=== PATIENT | male | born 1970 | race Caucasian/White ===

== ENCOUNTER 2021-03-17 15:10 | Emergency (ER) | payer BC ==
[~2021-03-17] VITALS: Ht 172.7 cm; Wt 79.5 kg
[2021-03-17] MEDS ORDERED: SYMB16INH INH (15:18)
[2021-03-17] MEDS ORDERED: FLON1SPR NARES (15:18)
[2021-03-17] MEDS ORDERED: NEXI40CA PO (15:18)
--- NOTE | 2021-03-17 16:05 | REP ---
INDICATION: CHEST PAIN. COMPARISON: None. TECHNIQUE: Portable FINDINGS: The technique utilized in obtaining the radiograph has magnified the cardiac silhouette and accentuated the interstitial markings. The superior mediastinal structures are midline. The cardiac silhouette is unremarkable in size, shape, and position. The diaphragmatic surfaces of the lungs are regular, and the costophrenic angles are clear. The pulmonary hancock are clear. The imaged osseous structures are intact. IMPRESSION: There is no acute cardiopulmonary disease. <Electronically signed by Douglas Rosenbaum > 03/17/21 [id number]
[2021-03-17 16:15] LABS: BASO % 0.5 % (0.0-1.0); EOS # 0.2 10^3/uL (0.0-0.5); EOS % 2.3 % (0.0-3.0); HEMATOCRIT 43.3 % (42.0-52.0); HEMOGLOBIN 15.7 g/dl (13.5-17.5); LYMPH # 1.5 10^3/uL (1.5-5.0); LYMPH % 22.4 % (24.0-44.0); MEAN CORPUSCULAR HEMOGLOBIN 32.2 pg (27.0-33.0); MEAN CORPUSCULAR HGB CONC 36.3 g/dl (32.0-36.5); MEAN CORPUSCULAR VOLUME 88.9 fl (80.0-96.0); MONO # 0.7 10^3/uL (0.0-0.8); MONO % 10.1 % (2.0-8.0); NEUTROPHILS # 4.2 10^3/uL (1.5-8.5); NEUTROPHILS % 64.5 % (36.0-66.0); PLATELET COUNT, AUTOMATED 178 10^3/uL (150-450); RED BLOOD COUNT 4.87 10^6/uL (4.30-6.10); WHITE BLOOD COUNT 6.6 10^3/uL (4.0-10.0)
[2021-03-17 16:41] LABS: ALBUMIN 3.9 GM/DL (3.2-5.2); ALT/SGPT 29 U/L (12-78); BILIRUBIN,DIRECT 0.3 MG/DL (0.0-0.2); BILIRUBIN,TOTAL 1.6 MG/DL (0.2-1.0); BLOOD UREA NITROGEN 13 MG/DL (7-18); CALCIUM LEVEL 8.8 MG/DL (8.5-10.1); CARBON DIOXIDE LEVEL 29 MEQ/L (21-32); CHLORIDE LEVEL 107 MEQ/L (98-107); CK-MB VALUE MASS < 1.0 NG/ML (<3.6); CPK CREATINE PHOSPHOKINASE 72 U/L (39-308); CREATININE FOR GFR 0.84 MG/DL (0.70-1.30); FREE THYROXINE INDEX 3.2 % (1.4-3.8); GLOMERULAR FILTRATION RATE > 60.0 (>56); GLUCOSE, FASTING 89 MG/DL (70-100); MAGNESIUM LEVEL 1.8 MG/DL (1.8-2.4); MB/CK RELATIVE INDEX 1.39 (< OR =4); POTASSIUM SERUM 4.1 MEQ/L (3.5-5.1); SODIUM LEVEL 141 MEQ/L (136-145); T UPTAKE 36 % (33-40); TOTAL PROTEIN 6.9 GM/DL (6.4-8.2); TROPONIN I < 0.02 NG/ML (< 0.10)
[2021-03-17 17:30] VITALS: BP 135/76
--- NOTE | 2021-03-17 20:25 | ECGEPIP ---
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
== END 2021-03-17 17:57 | disposition home or self-care (01) ==
LOC: M ED 15:10
DX: R00.2 Palpitations (principal); K21.9 Gastro-esophageal reflux disease without esophagitis; Z79.899 Other long term (current) drug therapy

== ENCOUNTER 2023-09-24 09:26 | Emergency (ER) | payer OTHER, SELFPAY ==
[~2023-09-24] VITALS: Ht 172.7 cm; Wt 76.5 kg
[~2023-09-24 09:26] MED LIST: FLON1SPR NARES; NEXI40CA PO; SYMB16INH INH
[2023-09-24] MEDS ORDERED: PANT40TA29 (09:36)
[2023-09-24] MEDS ORDERED: MONT10TA97 (09:36)
[2023-09-24] MEDS ORDERED: diazePAM 5MG TABLET PO ONE (10:30)
[2023-09-24] MEDS ORDERED: LIDOCAINE 5% (LIDODERM) PATCH TD ONE (10:30)
[2023-09-24] MEDS ORDERED: KETOROLAC 30 MG/ML 1ML VIAL IV ONE (10:30)
[2023-09-24] MEDS ORDERED: ACETAMINOPHEN 500 MG TAB PO ONE (10:30)
[2023-09-24 11:17] LABS: BASO % 0.8 % (0.0-1.0); EOS % 0.8 % (0.0-3.0); HEMATOCRIT 46.8 % (42.0-52.0); HEMOGLOBIN 16.1 g/dl (13.5-17.5); LYMPH # 0.7 10^3/uL (1.5-5.0); LYMPH % 13.5 % (24.0-44.0); MEAN CORPUSCULAR HEMOGLOBIN 31.4 pg (27.0-33.0); MEAN CORPUSCULAR HGB CONC 34.4 g/dl (32.0-36.5); MEAN CORPUSCULAR VOLUME 91.2 fl (80.0-96.0); MONO # 0.7 10^3/uL (0.0-0.8); MONO % 13.9 % (2.0-8.0); NEUTROPHILS # 3.4 10^3/uL (1.5-8.5); NEUTROPHILS % 70.8 % (36.0-66.0); PLATELET COUNT, AUTOMATED 177 10^3/uL (150-450); RED BLOOD COUNT 5.13 10^6/uL (4.30-6.10); WHITE BLOOD COUNT 4.8 10^3/uL (4.0-10.0)
[2023-09-24 11:28] VITALS: BP 103/52; TEMP 98.6; O2SAT 99
[2023-09-24 11:42] LABS: BILIRUBIN,DIRECT 0.3 MG/DL (<0.4); BILIRUBIN,TOTAL 1.7 MG/DL (0.3-1.2); TOTAL PROTEIN 7.2 G/DL (5.7-8.2)
[2023-09-24] MEDS ORDERED: KETO10TAB PO (12:51)
[2023-09-24] MEDS ORDERED: METH-1164 PO (12:51)
== END 2023-09-24 13:00 | disposition home or self-care (01) ==
LOC: M ED 09:26
DX: M54.50 Low back pain, unspecified (principal); K21.9 Gastro-esophageal reflux disease without esophagitis; K80.20 Calculus of gallbladder without cholecystitis without obstruction; Z79.899 Other long term (current) drug therapy
CPT/HCPCS: 72110; 80076; 81001; 83690; 85025; 96374; 99284; J1885